=== PATIENT | male | born 1960 | race Caucasian/White ===

== ENCOUNTER 2017-01-15 15:28 | Emergency (ER) | payer MEDICARE, MEDICAID ==
[~2017-01-15] VITALS: Ht 190.5 cm; Wt 93.0 kg
[~2017-01-15 15:28] MED LIST: ARIP1TAB12 PO
[2017-01-15 15:35] VITALS: BP 168/102; PULSE 120; RESP 16; TEMP 98.2
--- NOTE | 2017-01-15 16:41 | PD ---
HPI Chief Complaint: Psychiatric Symptoms Time Seen by Provider: 16:36 Travel History International Travel<30 days: No Contact w/Intl Traveler<30days: No Traveled to known affect area: No History of Present Illness HPI 56-year-old male that presents to the ED for evaluation of psych. Patient was expected secondary to noncompliance with medications. Patient has a history of schizo affective disorder. Patient would not provide any information for the most part he will not speak to us stating that is his right not to tell us anything and stating "I pledge the 5th". Patient does have a known history of schizophrenia has been here in the past for this. He does appear to be somewhat psychotic but does appear to be alert and oriented 4. He denies any medical problems. He denies any issues. Again history is somewhat limited because of patient's uncooperativeness. Per [facility] he is not taking his meds. PFSH Past Medical History Blood Disorders: No Bipolar Disorder: Yes Anxiety: Yes Depression: Yes Cancer: No Cardiovascular Problems: No Diabetes: No Diminished Hearing: No Endocrine: No Gastrointestinal Disorders: No Genitourinary: No Headaches: No Hypertension: Yes (ON ARRIVAL TO ED) Immune Disorder: No Implanted Vascular Access Dvce: No Musculoskeletal: No Neurologic: No Psychiatric: Yes (Schizoaffective Disorder) Reproductive: No Respiratory: No Schizophrenia: Yes (SCHIZOAFFECTIVE) Seizures: No Tetanus Vaccination: > 5 Years Influenza Vaccination: No Past Surgical History Surgical History: No Previous Surgery Insulin Pump: No Joint Replacement: No Pacemaker: No Other Surgery: No Social History Alcohol Use: No Tobacco Use: Yes (4-5 cigs daily) Substance Use: No (DENIED) Allergies-Medications (Allergen,Severity, Reaction): Coded Allergies: Depakote (Verified Allergy, Severe, 06/07/11) [place] (Verified Allergy, Severe, 06/12/11) PT DEVELOPED HYPERTENSION AND SWELLING OF HIS EYES WHEN HE HAD BEEN GIVEN LITHIUM AT THE [facility] Reported Meds & Prescriptions Reported Meds & Active Scripts Active Aripiprazole 10 Mg Tab 10 Mg PO BID Review of Systems ROS Limitations: Uncooperative Except as stated in HPI: all other systems reviewed are Neg Physical Exam Exam Limitations: Uncooperative Narrative GENERAL: SKIN: Warm and dry. HEAD: Atraumatic. Normocephalic. EYES: Pupils equal and round 4 mm reactive to light and accommodation. No scleral icterus. No injection or drainage. ENT: No nasal bleeding or discharge. Mucous membranes pink and moist. Tongue is midline. No uvula deviation. NECK: Trachea midline. No JVD. CARDIOVASCULAR: Regular rate and rhythm. No murmurs, S3, S4. RESPIRATORY: No accessory muscle use. Clear to auscultation. Breath sounds equal bilaterally. GASTROINTESTINAL: Abdomen soft, non-tender, nondistended. Hepatic and splenic margins not palpable. MUSCULOSKELETAL: Extremities without clubbing, cyanosis, or edema. No obvious deformities. Full range of motion of the upper and lower extremities bilaterally. 2+ pulses bilaterally. NEUROLOGICAL: Awake and alert and oriented x 4. No obvious cranial nerve deficits. Motor grossly within normal limits. Five out of 5 muscle strength in the arms and legs. Normal speech. PSYCHIATRIC: psychotic mood and affect; insight and judgment normal. Data Data Last Documented VS Vital Signs Date Time Temp Pulse Resp B/P Pulse Ox O2 Delivery O2 Flow Rate FiO2 01/15/17 15:35 98.2 120 16 168/102 Orders Complete Blood Count With Diff (01/15/17 15:32) Comprehensive Metabolic Panel (01/15/17 15:32) Psych Screen (01/15/17 15:32) Drug Screen, Random Urine (01/15/17 15:32) Alcohol (Ethanol) (01/15/17 15:32) Salicylates (Aspirin) (01/15/17 15:32) Tylenol (Acetaminophen) (01/15/17 15:32) ^ Sitter (01/15/17 15:39) [facility] Medical Decision Making Medical Screen Exam Complete: Yes Emergency Medical Condition: Yes Medical Record Reviewed: Yes Differential Diagnosis Depression versus suicidal ideation versus anxiety versus adjustment disorder versus mood disorder versus bipolar disorder versus schizophrenia versus paranoid disorder versus psychosis versus substance abuse versus alcohol abuse versus alcohol induced psychosis versus homicidality addition versus cutting versus personality disorder Narrative Course 56-year-old male that presents to the ED for evaluation of psych. Patient was properly examined and was found to have signs and symptoms consistent with appears to be psychiatric illness. No sign of acute medical distress. She refuses labs and will not really cooperate with us. At this time patient appears to be alert and oriented 4. Case was discussed in my attending who agrees that patient does have the right to decline labwork. Patient will be medically clear. Okay to be seen by psych. Mental health screening was discussed with the patient. Diagnosis Primary Impression: Schizoaffective disorder, manic type Fredrick Almodovar January 15, 2017 16:41
[2017-01-15] MEDS ORDERED: LORazepam 2 MG/ML VIAL IM ONE (17:30)
[2017-01-15] MEDS ORDERED: OLANZapine IM 10 MG VIAL IM ONE (19:30)
[2017-01-15 19:50] VITALS: PULSE 107; O2SAT 94
[2017-01-15 22:24] VITALS: RESP 18
[2017-01-16 01:54] VITALS: BP 129/75; PULSE 93; RESP 19; O2SAT 95
== END 2017-01-16 05:41 ==
LOC: NEPE 15:28 → NEPJ 01-16 05:41
DX: F25.0 Schizoaffective disorder, bipolar type (principal)
CPT/HCPCS: 99284; J2060

== ENCOUNTER 2017-08-14 09:55 | Emergency (ER) | payer MEDICARE, MEDICAID, OTHER ==
[~2017-08-14] VITALS: Ht 190.5 cm; Wt 90.0 kg
[2017-08-14 10:09] VITALS: BP 154/96; PULSE 96; RESP 19; TEMP 97.8; O2SAT 98
[2017-08-14] MEDS ORDERED: DIPHTH/TETANUS/ACEL PERTUSSIS (BOOSTER) 0.5 ML VIAL/PFS IM ONE (10:15)
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
[2017-08-14] MEDS ORDERED: LIDOCAINE HCL 1% 50 ML VIAL INFIL ONE (10:45)
--- NOTE | 2017-08-14 11:00 | PD ---
Physical Exam Time Seen by Provider: 10:56 Narrative I was asked to repair the laceration to the forehead and the upper lip. Data Data Last Documented VS Vital Signs Date Time Temp Pulse Resp B/P (MAP) Pulse Ox O2 Delivery O2 Flow Rate FiO2 08/14/17 10:09 97.8 96 19 154/96 (115) [address] Brain W/O Iv Contrast(Rout) (08/14/17 10:08) Ct Cerv Spine W/O Contrast (08/14/17 10:08) Wound Care (08/14/17 10:08) Ifra-Rxr-Bwpepn (Booster) Inj (Boostrix (08/14/17 10:15) Lidocaine 1% Inj (50 Ml) (Xylocaine 1% I (08/14/17 10:45) MDM Supervised Visit with ANTHONY: Yes Narrative Course I was asked to repair the forehead laceration and the laceration to the upper lip. See my procedure note. Procedures Procedure Narrative LACERATION LOCATION: Mid forehead LENGTH: 1 1/2 centimeters NUMBER OF STITCHES/HENNY: 2 simple interrupted sutures REPAIR: The area of the laceration was prepped with Betadine and sterilely draped. The laceration was infiltrated with 1 Percent lidocaine. The wound was copiously irrigated and explored without evidence of foreign body, tendon injury or neurovascular injury. The wound was closed using 5-0 Prolene. This was a single layer repair. A sterile dressing was applied. The patient was advised to keep the dressing clean and dry. Patient tolerated the procedure well. LACERATION LOCATION:mid-upper lip (inbetween the nose and lip) LENGTH: 1 1/2 centimeters; horse-shoe shaped NUMBER OF STITCHES/HENNY: 3 simple interrupted sutures REPAIR: The area of the laceration was prepped with Betadine and sterilely draped. The laceration was infiltrated with 1 Percent lidocaine. The wound was copiously irrigated and explored without evidence of foreign body, tendon injury or neurovascular injury. The wound was closed using 5-0 Prolene. This was a single layer repair. A sterile dressing was applied. The patient was advised to keep the dressing clean and dry. Patient tolerated the procedure well. Scripts No Active Prescriptions or Reported Meds Natalie Lima Aug 14, 2017 11:00
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
== END 2017-08-14 13:08 ==
LOC: NEPD 09:55
DX: S01.511A Laceration without foreign body of lip, initial encounter (principal); S01.81XA Laceration without foreign body of other part of head, initial encounter; S09.90XA Unspecified injury of head, initial encounter; M47.9 Spondylosis, unspecified; F31.9 Bipolar disorder, unspecified; I10 Essential (primary) hypertension; F25.9 Schizoaffective disorder, unspecified; F17.210 Nicotine dependence, cigarettes, uncomplicated; Y35.893A Legal intervention involving other specified means, suspect injured, initial encounter
CPT/HCPCS: 12013; 70450; 72125